=== PATIENT | female | born 1945 | race Caucasian/White ===

== ENCOUNTER 2017-07-30 08:40 | Outpatient (CLI) | payer MEDICARE, MEDICAID ==
[2017-07-30 09:14] LABS: Calc. Creatinine Clearance 0 mL/min (70-130); Estimated GFR-MDRD Greater than 90
--- NOTE | 2017-07-30 11:51 | CT ---
CT OF THE CHEST WITH CONTRAST: Date: 07/30/17 COMPARISON: None. HISTORY: History of breast, skin, and cervical cancer. Bone metastases. TECHNIQUE: Multiple contiguous axial images were obtained in a CT of the chest with contrast. Coronal reformats were performed. FINDINGS: There is a small left pleural effusion. There appears to be scarring in the left apex. There is a wel l circumscribed nodule in the right lower lobe measuring approximately 5-6 mm in size. There are scat tered areas of spiculation without central mass. These are most prominent in the right middle lobe an d right lower lobe. The heart is normal in size without focal cardiac abnormality. No hilar or mediastinal lymphadenopath y seen. The visualized subdiaphragmatic structures are unremarkable. The chest wall soft tissues are unremark able. Surgical clips are seen in the left axilla. A 1.8 cm area of soft tissue density near the surgi chelly clips may represent scar tissue. Recurrence is also a possibility. There are sclerotic lesions in the bones, most prominent in the spine, consistent with diffuse osseou s metastatic disease. IMPRESSION: 1. Diffuse osseous metastatic disease. 2. Right lower lobe pulmonary nodule with other scattered areas of spiculation in the right middle l obe and right lower lobe. These could potentially represent pulmonary metastatic disease. 3. Small left pleural effusion. POS: [facility]
--- NOTE | 2017-07-30 13:48 | NM ---
WHOLE BODY BONE SCAN: CLINICAL HISTORY: Metastatic breast malignancy. RADIOPHARMACEUTICAL: 31.7 mCi Technetium 99m MDP IV. COMPARISON: 01/25/17. FINDINGS: There remain scattered foci of increased radiotracer involving the axial and appendicular skeleton, w hich are less intense, when comparing to prior exam. This is compatible with the response to interva l therapy in the correct clinical context. There is redemonstration of multifocal abnormal areas of radiotracer uptake involving the calvarium, multilevel spine, pelvis, and lower extremities. IMPRESSION: Interval improvement with regard to increased scintigraphic activity involving multifocal osseous met astatic disease with residual areas of abnormal scintigraphic abnormality present, although are less intense. In the correct clinical context, this is correlative to interval response to therapy. No a dditional significant interval detrimental change identified. POS: [facility]
== END 2017-07-30 08:41 | disposition home or self-care (01) ==
LOC: CT 08:40
PROVIDERS: ATTEND Internal Medicine Hematology & Oncology
DX: C50.919 Malignant neoplasm of unspecified site of unspecified female breast (principal); C79.51 Secondary malignant neoplasm of bone; J90 Pleural effusion, not elsewhere classified; R91.1 Solitary pulmonary nodule
CPT/HCPCS: 71260; 78306; 82565; A9503; 36415

== ENCOUNTER 2018-01-18 08:52 | Outpatient (CLI) | payer MEDICARE, MEDICAID ==
[2018-01-18] MEDS ORDERED: Iopamidol 370 76% 100 ML VIAL ONE (10:36)
--- NOTE | 2018-01-18 11:21 | CT ---
CT THORAX WITH IV CONTRAST: 01/18/2018 HISTORY: Breast cancer. Osseous metastatic disease. History of prior chemotherapy. COMPARISON: 07/30/2017 FINDINGS: Post surgical changes, left breast, are again present. The left pleural fluid effusion has resolved. The pleural fluid collection at the posterior left renny g base has also decreased in size with only a thin curvilinear fluid density now present, in addition to what appears to be findings likely related to associated pleural thickening. The previously note d collection adjacent to the spleen, in the region of the left hemidiaphragm, has essentially resolve d, with increased attenuation now present in this region, which may be related to residual scarring a nd/or pleural thickening along the hemidiaphragm. The collection on the prior exam appeared to be ce ntered in the region of the left hemidiaphragm, although there was mass effect on the lateral wall of the spleen, which persists on today's examination, but the collection is no longer seen. There is a stable 7 mm pulmonary nodule at the posteromedial right lower lobe. There are a few scatt ered, irregular nodular densities again present within the right middle lobe, unchanged from the prio r exam. There is a stable mass-like density again noted in the left upper lobe, with adjacent linear densitie s and adjacent pleural thickening again present. There is also volume loss in the left upper lobe. These findings may be related to an area of scarring. This is unchanged compared to the prior exam. Given nodularity, a neoplastic process cannot be entirely excluded in this region of presumed scarrin g. There is no evidence of lymphadenopathy. Minimal vascular calcification is seen in the aortic arch. Sclerotic lesions associated with the right scapula, as well as involving several thoracic vertebral bodies, as well as the limited visualized L1 vertebral body, related to osseous metastatic disease, s imilar to the prior study. Increased density is seen within the gallbladder, dependently, likely related to cholelithiasis. No other interval change. IMPRESSION: 1. Resolution of left pleural effusion with improvement in left pleural fluid collection with only a thin, curvilinear collection now present, with pleural density posteriorly, likely related to pleura l thickening and scarring. The collection abutting the posterolateral aspect of the spleen has resol sherry, and there is now decreased attenuation in this region, which may be related to residual inflamma tory changes and/or scarring along the diaphragm. 2. Stable circumscribed pulmonary nodule, right lung base, with stable nodular densities in the righ t middle lobe. 3. Stable, mass like density with linear densities extending to the left hilum, which could be relat ed to scarring. However, given nodularity, a neoplastic process cannot be excluded. 4. Osseous metastatic disease, which does not appear to have significantly progressed from the prior exam. POS: [facility]
--- NOTE | 2018-01-18 13:41 | NM ---
RADIONUCLIDE WHOLE BODY BONE SCAN: History: Breast cancer with metastases. Restaging. Comparison: 07-30-17 FINDINGS: Focal areas of abnormal uptake, most intensely involving the right shoulder, thoracolumbar spine, and sacrum are similar in appearance to the prior study. Less intense areas involving the ribs, skull, a nd left tibia are also stable. No new areas of abnormal uptake are evident. IMPRESSION: Osseous metastatic disease appears unchanged from the 07-30-17 exam. POS: [facility]
== END 2018-01-18 08:53 | disposition home or self-care (01) ==
LOC: CT 08:52
PROVIDERS: ATTEND Internal Medicine Hematology & Oncology
DX: C50.919 Malignant neoplasm of unspecified site of unspecified female breast (principal); C79.51 Secondary malignant neoplasm of bone; R91.8 Other nonspecific abnormal finding of lung field; J90 Pleural effusion, not elsewhere classified
CPT/HCPCS: 71260; 78306; 82565; A9503

== ENCOUNTER 2018-06-30 08:42 | Outpatient (CLI) | payer MEDICARE, MEDICAID ==
--- NOTE | 2018-06-30 11:05 | CT ---
CT CHEST WITH CONTRAST: Comparison: 01-18-18, 07-30-17 History: Breast cancer with bone metastases. Technique: Multiple contiguous axial images were obtained in a CT of the chest with contrast. Coronal reformats were performed. FINDINGS: There is a stable 5 mm pulmonary nodule on Image 32 of 56 in the right lower lobe. Scarring versus at electasis is seen in the lingula. There are areas of scattered airspace opacities in the right middle lobe which are stable and may also represent scarring. A tiny left pleural effusion is present. No n ew pulmonary nodules are seen. No pneumothorax is seen. The visualized subdiaphragmatic structures are unremarkable. There are scattered sclerotic lesions in the skeleton consistent with osseous metastases. These appear stable compared to the prior examinati on. Post-surgical changes are seen in the left breast. IMPRESSION: 1. Stable right lower lobe pulmonary nodule. 2. Trace left pleural effusion. 3. Atelectasis versus scarring in the right middle lobe and lingula. 4. Stable sclerotic osseous lesions likely represent bone metastatic disease. This could represent re sidual disease or treated disease. POS: [facility]
--- NOTE | 2018-06-30 13:40 | NM ---
BONE SCAN: 06/30/18 The patient was given 30 millicuries of technetium labeled MDP, IV. Whole body images obtained. HISTORY: Breast cancer with bone metastases. Compared to bone scan of 01/18/18. There continues to be increased activity involving the right shoulder which appears to involve proxim al humerus and scapula. This appears to have increased in intensity. There are new lesions seen in the spine on posterior views today. There is several foci seen in the m id thoracic spine and there is very intense activity seen in the upper lumbar spine which appears to involve L1 and L2 vertebrae. This is new from prior study. Asymmetric sacral activity bilaterally. IMPRESSION: Increasing activity in the thoracic and lumbar spine since prior study. Continued abnormal activity a t the right shoulder and sacrum. POS: [facility]
== END 2018-06-30 08:43 | disposition home or self-care (01) ==
LOC: CT 08:42
PROVIDERS: ATTEND Internal Medicine Hematology & Oncology
DX: C50.919 Malignant neoplasm of unspecified site of unspecified female breast (principal); C79.51 Secondary malignant neoplasm of bone; R91.1 Solitary pulmonary nodule; M89.9 Disorder of bone, unspecified
CPT/HCPCS: 71260; 78306; 82565; A9503

== ENCOUNTER 2018-08-18 09:47 | Day surgery (SDC) | payer MEDICARE, MEDICAID ==
[2018-08-18 10:13] VITALS: BP 163/84; TEMP 98.4
[2018-08-18] MEDS ORDERED: Zoledronic Acid 4 MG in Sodium Chloride 0.9% 100 ML IVPB SCH (10:15)
[2018-08-18] MEDS ORDERED: Sodium Chloride 0.9% 300 ML ONE (10:20)
[2018-08-18 10:53] LABS: Red Blood Cell (RBC) Count 4.72 mill/uL (4.20-5.40)
[2018-08-18 10:54] LABS: %Neutrophils 62.4 % (42.0-75.0); Mean Corpuscular HGB CONC 33.3 g/dL (32.0-36.0); Mean Corpuscular Hemoglobin 29.7 pg (27.0-31.0); Mean Corpuscular Volume 89.2 fL (78.0-98.0); Platelet Count 187 thou/uL (130-400); RBC Distribution Width 11.8 % (11.5-14.5)
[2018-08-18 10:55] LABS: #Basophils 0.1 thou/uL (0.0-0.2); #Eosinphils 0.1 thou/uL (0.0-0.7); #Lymphocytes 1.7 thou/uL (1.20-3.40); #Monocytes 0.4 thou/uL (0.11-0.59); #Neutrophils 3.7 thou/uL (1.40-6.50); %Basophils 0.9 % (0.0-1.0); %Eosinophils 1.4 % (0.0-10.0); %Lymphocytes 27.9 % (21.0-51.0); %Monocytes 7.4 % (0.0-10.0)
== END 2018-08-18 10:57 | disposition home or self-care (01) ==
LOC: ONC/OP 09:47
PROVIDERS: ATTEND Internal Medicine Hematology & Oncology
DX: Z51.11 Encounter for antineoplastic chemotherapy (principal); C79.51 Secondary malignant neoplasm of bone; E78.00 Pure hypercholesterolemia, unspecified; E03.9 Hypothyroidism, unspecified; Z85.3 Personal history of malignant neoplasm of breast; Z92.21 Personal history of antineoplastic chemotherapy; Z92.3 Personal history of irradiation; Z79.899 Other long term (current) drug therapy; Z88.2 Allergy status to sulfonamides
CPT/HCPCS: 82378; 82565; 85025; 96365; 96402; J3489; J7050; J9395

== ENCOUNTER 2018-09-01 01:11 | Day surgery (SDC) | payer MEDICARE, MEDICAID | END 2018-09-01 09:19 | disposition home or self-care (01) | LOC: ONC/OP 01:11 | PROVIDERS: ATTEND Internal Medicine Hematology & Oncology | DX: Z51.11 Encounter for antineoplastic chemotherapy (principal); C79.51 Secondary malignant neoplasm of bone; Z85.3 Personal history of malignant neoplasm of breast; Z88.2 Allergy status to sulfonamides | CPT/HCPCS: 96402; J9395 ==

== ENCOUNTER 2018-09-15 10:00 | Day surgery (SDC) | payer MEDICARE, MEDICAID ==
[2018-09-15 14:04] VITALS: BP 140/95; TEMP 98.4
== END 2018-09-15 14:04 | disposition home or self-care (01) ==
LOC: ONC/OP 10:00
PROVIDERS: ATTEND Internal Medicine Hematology & Oncology
DX: Z51.11 Encounter for antineoplastic chemotherapy (principal); C79.51 Secondary malignant neoplasm of bone; Z85.3 Personal history of malignant neoplasm of breast; Z88.2 Allergy status to sulfonamides
CPT/HCPCS: 96402; J9395

== ENCOUNTER 2018-10-12 10:01 | Day surgery (SDC) | payer MEDICARE, MEDICAID ==
[2018-10-12 10:38] VITALS: BP 141/78; TEMP 97.5
== END 2018-10-12 10:38 | disposition home or self-care (01) ==
LOC: ONC/OP 10:01
PROVIDERS: ATTEND Internal Medicine Hematology & Oncology
DX: Z51.11 Encounter for antineoplastic chemotherapy (principal); C79.51 Secondary malignant neoplasm of bone; Z85.3 Personal history of malignant neoplasm of breast; Z88.2 Allergy status to sulfonamides
CPT/HCPCS: 80053; 82248; 83615; 84100; 84550; 96402; J9395

== ENCOUNTER 2018-11-09 11:57 | Day surgery (SDC) | payer MEDICARE, MEDICAID ==
[~2018-11-09 11:57] MED LIST: Zoledronic Acid 4 MG in Sodium Chloride 0.9% 100 ML IVPB SCH
[2018-11-09] MEDS ORDERED: Sodium Chloride 0.9% 20 ML ONE (12:07)
== END 2018-11-09 12:53 | disposition home or self-care (01) ==
LOC: ONC/OP 11:57
PROVIDERS: ATTEND Internal Medicine Hematology & Oncology
DX: Z51.11 Encounter for antineoplastic chemotherapy (principal); C79.51 Secondary malignant neoplasm of bone; Z85.3 Personal history of malignant neoplasm of breast; Z88.2 Allergy status to sulfonamides
CPT/HCPCS: 36415; 80053; 82248; 83615; 84100; 84550; 96365; 96402; J3489; J3490; J9395

== ENCOUNTER 2018-12-01 08:49 | Outpatient (CLI) | payer MEDICARE, MEDICAID ==
--- NOTE | 2018-12-01 10:25 | CT ---
CT CHEST WITH IV CONTRAST: Date: 12/01/17 HISTORY: Breast cancer with bone metastases. Status post left lumpectomy and chemo/radiation therapy. COMPARISON: 06/30/18. FINDINGS: No mediastinal, hilar, or axillary mass or lymphadenopathy seen. No pericardial or right pleural effu caroline is seen. There is a tiny stable left pleural effusion. The 5 mm pulmonary nodule in the right lower lobe is stable. Scarring versus atelectatic changes in t he lingula are again seen. Scarring in the right middle lobe is again seen. No new pulmonary nodules are seen. Sclerotic lesions in the skeleton consistent with metastases are stable. Cholelithiasis is again seen . IMPRESSION: Stable exam since 06/30/18. POS: [facility]
--- NOTE | 2018-12-01 14:37 | NM ---
WHOLE BODY BONE SCAN: Date: 12/01/18 HISTORY: Malignant neoplasm of unspecified site of unspecified female breast. Breast cancer with bone metastas is. Status post left lumpectomy and chemo/radiation therapy. COMPARISON: 06/30/18. CORRELATION: CT chest from same date. RADIOPHARMACEUTICAL: 29.5 mCi technetium-99m MDP injected intravenously. FINDINGS: Foci of increased uptake in the right scapula, thoracolumbar spine, and bilateral sacral ala and left femoral head are again seen, consistent with metastatic disease. No new lesions are seen. Tracer exc retion through the kidneys is within normal limits. Degenerative activity in the sternoclavicular haim nts, knees, feet, and wrists are again noted. IMPRESSION: Stable osseous metastatic disease since 06/30/18. POS: [facility]
== END 2018-12-01 08:50 | disposition home or self-care (01) ==
LOC: CT 08:49
PROVIDERS: ATTEND Internal Medicine Hematology & Oncology
DX: C79.51 Secondary malignant neoplasm of bone (principal); C50.919 Malignant neoplasm of unspecified site of unspecified female breast
CPT/HCPCS: 71260; 78306; 82565; A9503

== ENCOUNTER 2018-12-07 09:40 | Day surgery (SDC) | payer MEDICARE, MEDICAID ==
[2018-12-07 10:00] VITALS: BP 147/78; TEMP 98.5
== END 2018-12-07 10:01 | disposition home or self-care (01) ==
LOC: ONC/OP 09:40
PROVIDERS: ATTEND Internal Medicine Hematology & Oncology
DX: Z51.11 Encounter for antineoplastic chemotherapy (principal); C79.51 Secondary malignant neoplasm of bone; Z85.3 Personal history of malignant neoplasm of breast; Z88.1 Allergy status to other antibiotic agents
CPT/HCPCS: 80053; 82248; 83615; 84100; 84550; 96402; J9395

== ENCOUNTER 2019-01-11 11:13 | Day surgery (SDC) | payer MEDICARE, MEDICAID ==
[2019-01-11 11:20] VITALS: BP 150/72; TEMP 98.8
== END 2019-01-11 12:00 | disposition home or self-care (01) ==
LOC: ONC/OP 11:13
PROVIDERS: ATTEND Internal Medicine Hematology & Oncology
DX: Z51.11 Encounter for antineoplastic chemotherapy (principal); C79.51 Secondary malignant neoplasm of bone; Z85.3 Personal history of malignant neoplasm of breast; Z88.2 Allergy status to sulfonamides
CPT/HCPCS: 96402; J9395

== ENCOUNTER 2019-02-08 11:44 | Day surgery (SDC) | payer MEDICARE, MEDICAID ==
[2019-02-08] MEDS ORDERED: Sodium Chloride 0.9% 20 ML ONE (11:54)
== END 2019-02-08 13:04 | disposition home or self-care (01) ==
LOC: ONC/OP 11:44
PROVIDERS: ATTEND Internal Medicine Hematology & Oncology
DX: Z51.11 Encounter for antineoplastic chemotherapy (principal); C79.51 Secondary malignant neoplasm of bone; Z85.3 Personal history of malignant neoplasm of breast; Z88.2 Allergy status to sulfonamides
CPT/HCPCS: 36415; 82565; 96365; 96402; J3489; J3490; J9395

== ENCOUNTER 2019-03-08 10:57 | Day surgery (SDC) | payer MEDICARE, MEDICAID ==
[2019-03-08 11:14] VITALS: BP 144/73; TEMP 98.3
== END 2019-03-08 11:26 | disposition home or self-care (01) ==
LOC: ONC/OP 10:57
PROVIDERS: ATTEND Internal Medicine Hematology & Oncology
DX: Z51.11 Encounter for antineoplastic chemotherapy (principal); C79.51 Secondary malignant neoplasm of bone; Z85.3 Personal history of malignant neoplasm of breast; Z88.2 Allergy status to sulfonamides
CPT/HCPCS: 36415; 80053; 81001; 82248; 83615; 84100; 84550; 87086; 96402; J9395

== ENCOUNTER 2019-04-03 09:16 | Outpatient (CLI) | payer MEDICARE, MEDICAID ==
--- NOTE | 2019-04-03 10:43 | CT ---
CT chest with IV contrast HISTORY: Left breast cancer. Restaging. COMPARISON: 12/01/2018. FINDINGS: Dystrophic calcification and scarring at the left breast are stable. The 0.5 cm noncalcifie d nodule at the right posterior medial lung base is unchanged in appearance. No new parenchymal masses. Scarring, most pronounced at the left anterior lung base, is stable. Pleural thickening and s carring at the left posterior hemithorax are unchanged in appearance. No evidence of pneumothorax or mediastinal adenopathy. Hyperdense stones in the dependent portion of the gallbladder lumen. Sclerotic metastasis of the spine and right shoulder arthrogram demonstrated. Nondisplaced fracture a t the base of the coracoid process of the right scapula is stable. IMPRESSION: The 5 mm right lower lobe nodule, osseous metastatic disease, cholelithiasis, and other C T findings are stable.
[2019-04-03] MEDS ORDERED: Iopamidol 370 76% 100 ML VIAL ONE (13:12)
--- NOTE | 2019-04-03 14:47 | NM ---
WHOLE BODY BONE SCAN: HISTORY: A 73-year-old female with malignant neoplasm of unspecified site of unspecified female breast. Marbella dodson malignant neoplasm of bone. RADIOPHARMACEUTICAL: Technetium 99m MDP 32 millicuries injected intravenously. COMPARISON: Bone scan of 12/01/2018. CORRELATION: CT chest from the same date. FINDINGS: Previously noted foci of increased uptake in the right scapula, thoracolumbar spine, bilateral sacral ala, left femoral head and skull are again seen, consistent with metastatic disease. No new lesions are identified. Tracer excretion through the kidneys is within normal limits. Degenerative activity in the sternocla vicular joints, knees, feet, and wrists is again seen. IMPRESSION: Stable osseous metastatic disease. POS: [facility]
== END 2019-04-03 09:17 | disposition home or self-care (01) ==
LOC: CT 09:16
PROVIDERS: ATTEND Internal Medicine Hematology & Oncology
DX: C79.51 Secondary malignant neoplasm of bone (principal); K80.20 Calculus of gallbladder without cholecystitis without obstruction; R91.1 Solitary pulmonary nodule; Z85.3 Personal history of malignant neoplasm of breast
CPT/HCPCS: 71260; 78306; 82565; A9503; Q9967

== ENCOUNTER 2019-04-05 11:10 | Day surgery (SDC) | payer MEDICARE, MEDICAID ==
[2019-04-05 11:24] VITALS: BP 176/81; TEMP 98.4
== END 2019-04-05 13:22 | disposition home or self-care (01) ==
LOC: ONC/OP 11:10
PROVIDERS: ATTEND Internal Medicine Hematology & Oncology
DX: Z51.11 Encounter for antineoplastic chemotherapy (principal); C79.51 Secondary malignant neoplasm of bone; Z85.3 Personal history of malignant neoplasm of breast; Z88.2 Allergy status to sulfonamides
CPT/HCPCS: 96402; J9395

== ENCOUNTER 2019-05-03 09:23 | Day surgery (SDC) | payer MEDICARE, MEDICAID ==
[2019-05-03] MEDS ORDERED: Sodium Chloride 0.9% 20 ML ONE (09:32)
[2019-05-03 10:53] LABS: #Basophils 0.1 thou/uL (0.0-0.2); #Lymphocytes 1.1 thou/uL (1.20-3.40); #Monocytes 0.1 thou/uL (0.11-0.59); #Neutrophils 1.7 thou/uL (1.40-6.50); %Basophils 1.9 % (0.0-1.0); %Eosinophils 0.9 % (0.0-10.0); %Lymphocytes 38.1 % (21.0-51.0); %Monocytes 1.9 % (0.0-10.0); %Neutrophils 57.2 % (42.0-75.0); Mean Corpuscular HGB CONC 35.6 g/dL (32.0-36.0); Mean Corpuscular Hemoglobin 36.7 pg (27.0-31.0); Mean Platelet Volume 7.8 fL (7.4-10.4); Platelet Count 220 thou/uL (130-400); RBC Distribution Width 12.9 % (11.5-14.5); Red Blood Cell (RBC) Count 3.26 mill/uL (4.20-5.40)
== END 2019-05-03 11:56 | disposition home or self-care (01) ==
LOC: ONC/OP 09:23
PROVIDERS: ATTEND Internal Medicine Hematology & Oncology
DX: Z51.11 Encounter for antineoplastic chemotherapy (principal); C79.51 Secondary malignant neoplasm of bone; Z85.3 Personal history of malignant neoplasm of breast; Z88.2 Allergy status to sulfonamides
CPT/HCPCS: 85025; 96365; 96401; J3489; J3490; J9395

== ENCOUNTER 2019-05-31 10:54 | Day surgery (SDC) | payer MEDICARE, MEDICAID ==
[2019-05-31 11:15] VITALS: BP 133/79; TEMP 97.8
== END 2019-05-31 11:27 | disposition home or self-care (01) ==
LOC: ONC/OP 10:54
PROVIDERS: ATTEND Internal Medicine Hematology & Oncology
DX: Z51.11 Encounter for antineoplastic chemotherapy (principal); C79.51 Secondary malignant neoplasm of bone; Z85.3 Personal history of malignant neoplasm of breast
CPT/HCPCS: 96402; J9395

== ENCOUNTER 2019-06-28 09:18 | Day surgery (SDC) | payer MEDICARE, MEDICAID ==
[2019-06-28 09:56] VITALS: BP 140/74; TEMP 98
== END 2019-06-28 10:11 | disposition home or self-care (01) ==
LOC: ONC/OP 09:18
PROVIDERS: ATTEND Internal Medicine Hematology & Oncology
DX: Z51.11 Encounter for antineoplastic chemotherapy (principal); C79.51 Secondary malignant neoplasm of bone; Z85.3 Personal history of malignant neoplasm of breast; Z88.2 Allergy status to sulfonamides
CPT/HCPCS: 80053; 82248; 83615; 84100; 84550; 96402; J9395

== ENCOUNTER 2019-07-24 09:05 | Outpatient (CLI) | payer MEDICARE, MEDICAID ==
--- NOTE | 2019-07-24 12:02 | CT ---
CT CHEST WITH IV CONTRAST: Date: 07/24/2019 HISTORY: Left breast cancer, restaging. COMPARISON: 04/03/2019. FINDINGS: Dystrophic calcification scarring in the left breast is again seen. No mediastinal, hilar, or axillar y mass or lymphadenopathy identified. Postop changes of left axillary dissection are redemonstrated. No pleural or pericardial effusions are seen. The pleural thickening and scarring in the left posteri or hemothorax are unchanged. Scarring in the left upper lobe is redemonstrated. The 5 mm solid parenc hymal nodule in the posteromedial aspect of the right lung base is stable. No new parenchymal masses are seen. Upper abdominal tomograms demonstrate cholelithiasis. Sclerotic metastatic changes in the spine and right scapula are again seen. IMPRESSION: Stable exam since 04/03/2019. POS: [facility]
--- NOTE | 2019-07-24 13:37 | NM ---
Radionucleotide bone scan HISTORY: Breast cancer with osseous metastases. Restaging. COMPARISON: Multiple exams back to 06/30/2018. FINDINGS: Abnormal foci of increased radiotracer uptake involving the right scapula, thoracolumbar sp ine, pelvis, and skull again demonstrated. Increased intensity is favored to be related to differences in windowing of images. The subtle lesion involving the mid left femoral shaft was not we ll demonstrated on the 04/03/2019 study but is unchanged from the 12/01/2018 study. No new abnormalities are evident. IMPRESSION: Stable scintigraphic evidence of osseous metastatic disease.
[2019-07-24] MEDS ORDERED: Iopamidol 370 76% 100 ML VIAL ONE (15:51)
== END 2019-07-24 09:06 | disposition home or self-care (01) ==
LOC: CT 09:05
PROVIDERS: ATTEND Internal Medicine Hematology & Oncology
DX: C79.51 Secondary malignant neoplasm of bone (principal); C50.912 Malignant neoplasm of unspecified site of left female breast
CPT/HCPCS: 71260; 78306; 82565; A9503; Q9967

== ENCOUNTER 2019-07-26 11:53 | Day surgery (SDC) | payer MEDICARE, MEDICAID ==
[2019-07-26] MEDS ORDERED: Sodium Chloride 0.9% 20 ML ONE (12:45)
[2019-07-26 14:27] VITALS: BP 150/71; TEMP 97.9
== END 2019-07-26 14:28 | disposition home or self-care (01) ==
LOC: ONC/OP 11:53
PROVIDERS: ATTEND Internal Medicine Hematology & Oncology
DX: Z51.11 Encounter for antineoplastic chemotherapy (principal); C79.51 Secondary malignant neoplasm of bone; Z85.3 Personal history of malignant neoplasm of breast
CPT/HCPCS: 36415; 82565; 96374; 96401; J3489; J3490; J9395

== ENCOUNTER → 2019-08-23 | Day surgery (SDC) | payer MEDICARE, MEDICAID ==
[2019-08-23 14:29] VITALS: BP 134/72; TEMP 98.7
== END ==
LOC: ONC/OP 10:59
PROVIDERS: ATTEND Internal Medicine Hematology & Oncology
DX: Z51.11 Encounter for antineoplastic chemotherapy (principal); C79.51 Secondary malignant neoplasm of bone; Z85.3 Personal history of malignant neoplasm of breast; Z88.2 Allergy status to sulfonamides
CPT/HCPCS: 80053; 82248; 83615; 84100; 84550; 96401; J9395

== ENCOUNTER 2019-09-20 09:51 | Day surgery (SDC) | payer MEDICARE, MEDICAID ==
[2019-09-20 10:17] VITALS: BP 143/74; TEMP 98.6
== END 2019-09-20 11:52 | disposition home or self-care (01) ==
LOC: ONC/OP 09:51
PROVIDERS: ATTEND Internal Medicine Hematology & Oncology
DX: Z51.12 Encounter for antineoplastic immunotherapy (principal); C79.51 Secondary malignant neoplasm of bone; Z85.3 Personal history of malignant neoplasm of breast; Z88.2 Allergy status to sulfonamides
CPT/HCPCS: 96401; J9395

== ENCOUNTER 2019-10-18 10:18 | Day surgery (SDC) | payer MEDICARE, MEDICAID ==
[~2019-10-18 10:18] MED LIST changes: +Sodium Chloride 0.9% 20 ML ONE
[2019-10-18 14:41] VITALS: BP 169/75; TEMP 98
== END 2019-10-18 14:42 | disposition home or self-care (01) ==
LOC: ONC/OP 10:18
PROVIDERS: ATTEND Internal Medicine Hematology & Oncology
DX: C79.51 Secondary malignant neoplasm of bone (principal); Z85.3 Personal history of malignant neoplasm of breast; Z79.818 Long term (current) use of other agents affecting estrogen receptors and estrogen levels; Z79.83 Long term (current) use of bisphosphonates; Z88.2 Allergy status to sulfonamides
CPT/HCPCS: 36415; 80053; 82248; 83615; 84100; 84550; 96402; J3489; J3490; J9395

== ENCOUNTER 2019-11-15 10:54 | Day surgery (SDC) | payer MEDICARE, MEDICAID ==
[~2019-11-15 10:54] MED LIST changes: -Zoledronic Acid 4 MG in Sodium Chloride 0.9% 100 ML IVPB SCH
[2019-11-15] MEDS ORDERED: Zoledronic Acid 4 MG in Sodium Chloride 0.9% 100 ML IVPB SCH (11:00)
[2019-11-15 12:23] VITALS: BP 142/71; TEMP 98.4
== END 2019-11-15 12:55 | disposition home or self-care (01) ==
LOC: ONC/OP 10:54
PROVIDERS: ATTEND Internal Medicine Hematology & Oncology
DX: Z51.11 Encounter for antineoplastic chemotherapy (principal); C79.51 Secondary malignant neoplasm of bone; Z85.3 Personal history of malignant neoplasm of breast; Z88.2 Allergy status to sulfonamides
CPT/HCPCS: 96365; 96402; J3489; J3490; J9395

== ENCOUNTER 2019-12-04 09:19 | Outpatient (CLI) | payer MEDICARE, MEDICAID ==
[2019-12-04] MEDS ORDERED: Iopamidol 370 76% 100 ML VIAL ONE (09:51)
--- NOTE | 2019-12-04 10:52 | CT ---
CT chest with IV contrast HISTORY: Breast cancer with bone metastases. Restaging. COMPARISON: 07/24/2019. FINDINGS: Large wedge-shaped area of parenchymal opacity at the lateral aspect of the left upper lobe has the appearance of scarring and is similar in appearance to the previous study. Pleural thickening at the posterior left hemithorax is stable. The 0.5 cm noncalcified nodule at the right posterior medial lung base is unchanged in appearance. Ti ny nonspecific subpleural nodule at the right anterior medial aspect of the right upper lobe is stable. No new nodules are evident. Postoperative changes of the left breast and left axilla again demonstrated. No mediastinal adenopath y. Hyperdense stones partially visualized within the dependent portion of the gallbladder lumen. IMPRESSION : Left lung parenchymal scarring, tiny right lung nodules, and other findings are stable. No new lesion s demonstrated.
--- NOTE | 2019-12-04 14:37 | NM ---
Radionucleotide bone scan HISTORY: Breast cancer with bone metastases. Restaging. COMPARISON: 07/24/2019. FINDINGS: Areas of abnormal radiotracer uptake are again demonstrated at the right scapula, thoracic and lumbar spine, pelvis, ribs, and left femur. The very subtle lesion involving the left side of the skull is barely perceptible on today's exam. No new abnormalities are evident. Pubic symphysis predominantly obscured by uptake and urinary bladde r. IMPRESSION : Possible mild improvement, as the skull lesion is less conspicuous than on previous exams. Findings a re otherwise stable. No new abnormalities.
== END 2019-12-04 09:20 | disposition home or self-care (01) ==
LOC: CT 09:19
PROVIDERS: ATTEND Internal Medicine Hematology & Oncology
DX: C50.919 Malignant neoplasm of unspecified site of unspecified female breast (principal); C79.51 Secondary malignant neoplasm of bone
CPT/HCPCS: 71260; 78306; 82565; A9503; Q9967

== ENCOUNTER 2020-01-10 10:54 | Day surgery (SDC) | payer MEDICARE, MEDICAID ==
[~2020-01-10 10:54] MED LIST changes: -Sodium Chloride 0.9% 20 ML ONE; +Zoledronic Acid 4 MG in Sodium Chloride 0.9% 100 ML IVPB SCH
[2020-01-10 11:00] VITALS: BP 143/74; TEMP 98
== END 2020-01-10 11:48 | disposition home or self-care (01) ==
LOC: ONC/OP 10:54
PROVIDERS: ATTEND Internal Medicine Hematology & Oncology
DX: C79.51 Secondary malignant neoplasm of bone (principal); Z85.3 Personal history of malignant neoplasm of breast; Z79.818 Long term (current) use of other agents affecting estrogen receptors and estrogen levels; Z79.83 Long term (current) use of bisphosphonates; Z88.2 Allergy status to sulfonamides
CPT/HCPCS: 36415; 82565; 96402; J3489; J3490; J9395

== ENCOUNTER 2020-02-07 10:04 | Day surgery (SDC) | payer MEDICARE, MEDICAID ==
[2020-02-07] MEDS ORDERED: Sodium Chloride 0.9% 20 ML ONE (10:21)
[2020-02-07 10:32] VITALS: BP 160/71; TEMP 97.9
== END 2020-02-07 11:37 | disposition home or self-care (01) ==
LOC: ONC/OP 10:04
PROVIDERS: ATTEND Internal Medicine Hematology & Oncology
DX: Z51.11 Encounter for antineoplastic chemotherapy (principal); C79.51 Secondary malignant neoplasm of bone; Z85.3 Personal history of malignant neoplasm of breast; Z88.2 Allergy status to sulfonamides
CPT/HCPCS: 80053; 82248; 83615; 84100; 84550; 96365; 96402; J3489; J3490; J9395

== ENCOUNTER 2020-04-01 10:08 | Outpatient (CLI) | payer MEDICARE, MEDICAID ==
--- NOTE | 2020-04-01 11:01 | CT ---
CT CHEST WITH CONTRAST CLINICAL INDICATION: Breast cancer with osseous metastatic disease. History of left lumpectomy. COMPARISON: 12/04/2019 FINDINGS: Aorta: Minimal scattered vascular calcifications and atherosclerotic plaque. Lungs: Again noted is the parenchymal opacity in the anterolateral aspect of the left upper lobe with linear densities extending to the hilum, and this is likely related to an area of scarring which is unchanged compared to prior study. Findings were also similar in appearance to study on 06/30/2018 . There are at least 3 less than 5 mm nodular densities seen in the right middle lobe unchanged when co mpared to the prior study. No new pulmonary nodule or mass is seen. Stable area of pleural thickening posterior left hemithorax is again seen. No new pulmonary nodule or mass is seen. There ar e scattered linear densities again seen within the right lung probably due to areas of mild scarring. There is minimal pleural thickening along the major fissure on the right. This is also a st able finding. Mediastinum: There is no evidence of lymphadenopathy. Thyroid gland: Normal in appearance where visualized. Osseous structures: Again noted are multifocal osseous metastatic lesions seen throughout the visuali zed lower cervical, thoracic, and visualized upper lumbar vertebral bodies similar to prior exam. A subtle focus of increased density is again seen in the manubrium. Metastatic lytic and sclerotic lesi on involving the right scapula is again seen. No definite newly developed osseous metastatic lesions are seen. Chest wall: Postoperative changes left breast and left axilla are again seen. Upper abdomen: Exophytic subcentimeter too small to characterize hypodense lesion superior pole left kidney is again seen statistically likely representing a cyst. There is diminished attenuation in the central aspect of each kidney which may be related to parapelvic renal cysts as opposed to hydron ephrosis. This difficult to further evaluate on this exam. IMPRESSION: 1. Stable area of parenchymal scarring left upper lobe as well as stable pleural thickening posterior left hemithorax. 2. Stable tiny less than 4 mm pulmonary nodules right middle lobe. 3. Stable osseous metastatic disease.
--- NOTE | 2020-04-01 14:18 | NM ---
Radionucleotide bone scan HISTORY: Breast cancer. Bone metastases. Restaging. COMPARISON: 12/04/2019. FINDINGS: Focal areas of increased radiotracer uptake are again shown to involve the right scapula, t horacic and lumbar spine, pelvis, posterior ribs, and left femur. Mild degenerative type uptake of the knees and feet are stable. No new lesions are apparent. IMPRESSION : Stable scintigraphic appearance of osseous metastatic disease.
== END 2020-04-01 10:09 | disposition home or self-care (01) ==
LOC: CT 10:08
PROVIDERS: ATTEND Internal Medicine Hematology & Oncology
DX: C50.919 Malignant neoplasm of unspecified site of unspecified female breast (principal); C79.51 Secondary malignant neoplasm of bone; R91.8 Other nonspecific abnormal finding of lung field; J98.4 Other disorders of lung; J92.9 Pleural plaque without asbestos; Z85.3 Personal history of malignant neoplasm of breast
CPT/HCPCS: 71260; 78306; A9503

== ENCOUNTER 2020-08-20 08:50 | Outpatient (CLI) | payer MEDICARE, MEDICAID ==
[2020-08-20] MEDS ORDERED: Iopamidol 370 76% 100 ML VIAL ONE (10:45)
--- NOTE | 2020-08-20 12:12 | CT ---
CT OF CHEST AND ABDOMEN AND PELVIS PERFORMED WITH IV CONTRAST ENHANCEMENT: Date: 08/20/2020 HISTORY: Breast cancer with bone metastases. This is a follow-up. COMPARISON: 04/01/2020 study. FINDINGS: CT CHEST: Left upper lobe pleural based scarring. This has a slightly nodular component. This is a stable appea felipe as compared to the previous exam. The previously described tiny nodular densities within the ri ght lung are stable. These were seen on axial image 24. The small pleural effusion or pleural thicken ing seen in the left lung base is stable. Postoperative changes of the left breast again noted. No si gnificant mediastinal, hilar, or axillary adenopathy. CT ABDOMEN: CT of abdomen was performed with contrast enhancement. The liver, spleen, and pancreas regions are un remarkable. There are small gallstones within mildly distended gallbladder incidentally seen. Right a nd left adrenal glands are normal. Small hypodensity in the upper pole of the left kidney is most com patible with a cyst. There also appears to be some parapelvic cyst formation. There is no significant periaortic or mesenteric adenopathy. CT PELVIS: CT of pelvis was performed with contrast enhancement. Some calcified uterine fibroids are present. Di rectly anterior to the uterine fundus is a small cystic structure which appears to be related to a sm all bowel. This is seen on axial image 104. It is definitely smaller as compared to the 2017 study. I t measured almost 2.5 cm at that time. This may represent some type of duplication cyst or small dive rticulum and is felt to be an incidental finding. A small, fat-containing paraumbilical hernia is see n. Review of osseous structures show extensive metastatic bony changes. Changes in the chest and abdomen region are felt to be stable as compared to previous chest and abdomen exams. There is also bony met astatic disease seen within the pelvis. No pathologic fracture is identified. IMPRESSION: 1. Essentially stable chest, abdomen, and pelvis. 2. Diffuse bony metastatic disease. 3. Stable tiny nodules within the right lung. Also, stable parenchymal scarring within the left lung . 4. Gallstones. 5. Other incidental findings as noted above. POS: [facility] [place]
--- NOTE | 2020-08-20 13:29 | NM ---
WHOLE BODY BONE SCAN: HISTORY: Primary malignant neoplasm of breast. Secondary malignant neoplasm of bone. RADIOPHARMACEUTICAL: 31.6 mCi technetium 99m-MDP injected intravenously COMPARISON:12/04/2019 CORRELATION: CT chest, abdomen and pelvis from today FINDINGS: Focal areas of increased radiotracer uptake are again shown to involve the right scapula, thoracic an d lumbar spine, pelvis, posterior ribs, and left femur. There is a subtle focus of increased uptake in the left side of the skull was not definitely seen on the study of 04/01/2020 There scattered degenerative activity in the appendicular skeleton. Tracer excretion through the kidneys is within normal limits. IMPRESSION: Tiny new calvarial lesion, otherwise stable exam
== END 2020-08-20 08:51 | disposition home or self-care (01) ==
LOC: CT 08:50
PROVIDERS: ATTEND Internal Medicine Hematology & Oncology
DX: C50.919 Malignant neoplasm of unspecified site of unspecified female breast (principal); C79.51 Secondary malignant neoplasm of bone; R91.8 Other nonspecific abnormal finding of lung field; K80.20 Calculus of gallbladder without cholecystitis without obstruction; N28.89 Other specified disorders of kidney and ureter; D25.9 Leiomyoma of uterus, unspecified; Z98.890 Other specified postprocedural states
CPT/HCPCS: 71260; 74177; 78306; 82565; A9503; Q9967

== ENCOUNTER 2021-01-06 09:16 | Outpatient (CLI) | payer MEDICARE, MEDICAID ==
[~2021-01-06 09:16] MED LIST changes: +Iopamidol 370 76% 100 ML VIAL ONE; -Zoledronic Acid 4 MG in Sodium Chloride 0.9% 100 ML IVPB SCH
== END 2021-01-06 09:17 | disposition home or self-care (01) ==
LOC: CT 09:16
PROVIDERS: ATTEND Internal Medicine Hematology & Oncology
DX: C79.51 Secondary malignant neoplasm of bone (principal); C50.919 Malignant neoplasm of unspecified site of unspecified female breast; J98.4 Other disorders of lung; J92.9 Pleural plaque without asbestos; K80.20 Calculus of gallbladder without cholecystitis without obstruction
CPT/HCPCS: 71260; 78306; 82565; A9503; Q9967

== ENCOUNTER 2021-07-04 08:36 | Outpatient (CLI) | payer MEDICARE, MEDICAID ==
[~2021-07-04 08:36] MED LIST changes: -Iopamidol 370 76% 100 ML VIAL ONE; +Iopamidol-370 76% 500 ML 1 ML ONE
== END 2021-07-04 08:37 | disposition home or self-care (01) ==
LOC: CT 08:36
PROVIDERS: ATTEND Internal Medicine Hematology & Oncology
DX: C50.919 Malignant neoplasm of unspecified site of unspecified female breast (principal); C79.51 Secondary malignant neoplasm of bone; J98.4 Other disorders of lung; R91.8 Other nonspecific abnormal finding of lung field; R16.0 Hepatomegaly, not elsewhere classified
CPT/HCPCS: 71260; 78306; A9503; Q9967

== ENCOUNTER 2021-07-23 10:38 | Outpatient (CLI) | payer MEDICARE, MEDICAID | END 2021-07-23 10:39 | disposition home or self-care (01) | LOC: MERGE 10:38 → BICCT 10:38 | PROVIDERS: ATTEND Internal Medicine Hematology & Oncology | DX: R93.2 Abnormal findings on diagnostic imaging of liver and biliary tract (principal); C78.7 Secondary malignant neoplasm of liver and intrahepatic bile duct; C79.51 Secondary malignant neoplasm of bone; K80.20 Calculus of gallbladder without cholecystitis without obstruction | CPT/HCPCS: 74178; 82565 ==

== ENCOUNTER 2022-03-09 08:33 | Outpatient (CLI) | payer MEDICARE, MEDICAID ==
[2022-03-09] MEDS ORDERED: Iopamidol-370 76% 500 ML 1 ML ONE (11:26)
== END 2022-03-09 08:34 | disposition home or self-care (01) ==
LOC: BICCT 08:33
PROVIDERS: ATTEND Internal Medicine Hematology & Oncology
DX: C22.9 Malignant neoplasm of liver, not specified as primary or secondary (principal); C79.51 Secondary malignant neoplasm of bone
CPT/HCPCS: 74177; 82565; Q9967

== ENCOUNTER 2022-06-08 08:43 | Outpatient (CLI) | payer MEDICARE, MEDICAID ==
[2022-06-08] MEDS ORDERED: Iopamidol-370 76% 500 ML 1 ML ONE (09:13)
== END 2022-06-08 08:44 | disposition home or self-care (01) ==
LOC: BICCT 08:43
PROVIDERS: ATTEND Internal Medicine Hematology & Oncology
DX: C79.51 Secondary malignant neoplasm of bone (principal); C78.7 Secondary malignant neoplasm of liver and intrahepatic bile duct; C50.919 Malignant neoplasm of unspecified site of unspecified female breast; R91.1 Solitary pulmonary nodule; K76.9 Liver disease, unspecified; J92.9 Pleural plaque without asbestos; I70.0 Atherosclerosis of aorta; K80.20 Calculus of gallbladder without cholecystitis without obstruction; N28.1 Cyst of kidney, acquired; K42.9 Umbilical hernia without obstruction or gangrene
CPT/HCPCS: 71260; 74177; 82565

== ENCOUNTER 2022-07-24 10:52 | Outpatient (CLI) | payer MEDICARE, MEDICAID ==
[2022-07-24 12:21] LABS: #Basophils 0.1 10x3/uL (0.0-0.2); #Monocytes 0.6 10x3/uL (0.0-1.1); %Lymphocytes 26.1 % (18.0-47.0); %Monocytes 9.1 % (0.0-10.0); %Neutrophils 63.2 % (40.0-75.0); Hemoglobin 12.9 g/dL (12.0-15.5); Mean Corpuscular HGB CONC 33.1 g/dL (32.0-36.0); Mean Corpuscular Hemoglobin 30.9 pg (27.0-33.0); Mean Corpuscular Volume 93.5 fl (81.6-98.3); Mean Platelet Volume 9.5 fl (7.4-10.4); Platelet Count 243 10x3/uL (150-450); Red Blood Cell (RBC) Count 4.17 10x6/uL (3.90-5.03); White Blood Cell (WBC) Count 6.3 10x3/uL (3.5-10.5)
[2022-07-24 12:36] LABS: Anion Gap 9 mmol/L (10-20); BUN (Urea Nitrogen) 12 mg/dL (9.8-20.1); Calc. Creatinine Clearance 0 mL/min (70-130); Calcium 8.8 mg/dL (7.8-10.44); Carbon Dioxide 26 mmol/L (23-31); Chloride 107 mmol/L (98-107); Estimated GFR 84; Glucose 94 mg/dL (83-110); Potassium 4.3 mmol/L (3.5-5.1); Sodium 138 mmol/L (136-145)
== END 2022-07-24 10:53 | disposition home or self-care (01) ==
LOC: LABBT 10:52
PROVIDERS: ATTEND Specialist
DX: Z01.812 Encounter for preprocedural laboratory examination (principal); C50.919 Malignant neoplasm of unspecified site of unspecified female breast
CPT/HCPCS: 80048; 85025

== ENCOUNTER 2022-07-27 09:48 | Day surgery (SDC) | payer MEDICARE, MEDICAID ==
[2022-07-24 11:52] VITALS: BMI 29.2
[2022-07-27] MEDS ORDERED: Ketorolac Tromethamine 30 MG/ML VIAL ONE (10:27)
[2022-07-27] MEDS ORDERED: Acetaminophen 500 MG TAB ONE (10:27)
[2022-07-27] MEDS ORDERED: Bupivacaine/Epinephrine 0.25% 30 ML VIAL ONE (11:32)
[2022-07-27] MEDS ORDERED: CEFAZOLIN 2 GM VIAL ONE (11:49)
[2022-07-27] MEDS ORDERED: Sodium Chloride 0.9% 100 ML ONE (11:49)
[2022-07-27] MEDS ORDERED: Fentanyl 250 MCG/5 ML VIAL ONE (11:54)
[2022-07-27] MEDS ORDERED: PROPOFOL 40 ML ONE (11:55)
[2022-07-27] MEDS ORDERED: Fentanyl 100 MCG/2 ML VIAL ONE (12:39)
[2022-07-27] MEDS ORDERED: PROPOFOL 200 MG/20 ML VIAL ONE (13:01)
== END 2022-07-27 14:55 | disposition home or self-care (01) ==
LOC: SDC 09:48
PROVIDERS: ATTEND Specialist
PROC: 0JH60WZ Insertion of Totally Implantable Vascular Access Device into Chest Subcutaneous Tissue and Fascia, Open Approach (ICD-10-PCS; principal; 2022-07-27)
PROC: 02HV33Z Insertion of Infusion Device into Superior Vena Cava, Percutaneous Approach (ICD-10-PCS; 2022-07-27)
DX: C50.912 Malignant neoplasm of unspecified site of left female breast (principal); C79.51 Secondary malignant neoplasm of bone; C78.00 Secondary malignant neoplasm of unspecified lung; C78.7 Secondary malignant neoplasm of liver and intrahepatic bile duct; E78.00 Pure hypercholesterolemia, unspecified; E03.9 Hypothyroidism, unspecified; G44.029 Chronic cluster headache, not intractable; N18.30 Chronic kidney disease, stage 3 unspecified; Z79.890 Hormone replacement therapy; Z79.899 Other long term (current) drug therapy; Z88.2 Allergy status to sulfonamides
CPT/HCPCS: 71045; C1788; J1642; J1885; J2704; J3010; J3490

== ENCOUNTER 2022-09-22 10:33 | Outpatient (CLI) | payer MEDICARE, MEDICAID ==
[~2022-09-22 10:33] MED LIST changes: +Iopamidol 370 76% 100 ML VIAL ONE; -Iopamidol-370 76% 500 ML 1 ML ONE
== END 2022-09-22 10:34 | disposition home or self-care (01) ==
LOC: CT 10:33
PROVIDERS: ATTEND Internal Medicine Hematology & Oncology
DX: C79.51 Secondary malignant neoplasm of bone (principal); C22.9 Malignant neoplasm of liver, not specified as primary or secondary; R91.1 Solitary pulmonary nodule
CPT/HCPCS: 71260; 74177; Q9967

== ENCOUNTER 2022-11-12 13:52 | Outpatient (CLI) | payer MEDICARE, MEDICAID | END 2022-11-12 13:53 | disposition home or self-care (01) | LOC: ULT 13:52 | PROVIDERS: ATTEND Internal Medicine Hematology & Oncology | DX: Z51.11 Encounter for antineoplastic chemotherapy (principal); C79.51 Secondary malignant neoplasm of bone; R91.1 Solitary pulmonary nodule; I50.30 Unspecified diastolic (congestive) heart failure; I08.3 Combined rheumatic disorders of mitral, aortic and tricuspid valves; Z79.899 Other long term (current) drug therapy | CPT/HCPCS: 93306 ==

== ENCOUNTER 2023-03-26 10:19 | Outpatient (CLI) | payer MEDICARE, MEDICAID ==
[2023-03-26] MEDS ORDERED: Iopamidol 370 76% 100 ML VIAL ONE (12:44)
== END 2023-03-26 10:20 | disposition home or self-care (01) ==
LOC: CT 10:19
PROVIDERS: ATTEND Internal Medicine Hematology & Oncology
DX: C50.919 Malignant neoplasm of unspecified site of unspecified female breast (principal); C79.51 Secondary malignant neoplasm of bone; C78.7 Secondary malignant neoplasm of liver and intrahepatic bile duct; R91.8 Other nonspecific abnormal finding of lung field; K76.9 Liver disease, unspecified; J92.9 Pleural plaque without asbestos; J98.4 Other disorders of lung; K80.20 Calculus of gallbladder without cholecystitis without obstruction; N28.1 Cyst of kidney, acquired; N85.8 Other specified noninflammatory disorders of uterus; I70.0 Atherosclerosis of aorta; I70.8 Atherosclerosis of other arteries; K42.9 Umbilical hernia without obstruction or gangrene; R93.5 Abnormal findings on diagnostic imaging of other abdominal regions, including retroperitoneum; R93.2 Abnormal findings on diagnostic imaging of liver and biliary tract; Z95.828 Presence of other vascular implants and grafts
CPT/HCPCS: 71260; 74177; Q9967

== ENCOUNTER 2023-06-24 10:02 | Outpatient (CLI) | payer MEDICARE, MEDICAID | END 2023-06-24 10:03 | disposition home or self-care (01) | LOC: CT 10:02 | PROVIDERS: ATTEND Internal Medicine Hematology & Oncology | DX: C79.51 Secondary malignant neoplasm of bone (principal); R91.1 Solitary pulmonary nodule; C78.7 Secondary malignant neoplasm of liver and intrahepatic bile duct; K76.9 Liver disease, unspecified; K80.20 Calculus of gallbladder without cholecystitis without obstruction; C80.1 Malignant (primary) neoplasm, unspecified | CPT/HCPCS: 71260; 74177 ==

== ENCOUNTER 2023-10-13 08:42 | Outpatient (CLI) | payer MEDICARE, MEDICAID ==
[2023-10-13] MEDS ORDERED: Iopamidol 370 76% 100 ML VIAL ONE (10:01)
[2023-10-13] MEDS ORDERED: GASTROGRAFIN 30 ML BOT ONE (10:01)
[2023-10-13] MEDS ORDERED: Magnevist 469MG/ML 20 ML VIAL ONE ×2 (10:22)
== END 2023-10-13 08:43 | disposition home or self-care (01) ==
LOC: CT 08:42
PROVIDERS: ATTEND Internal Medicine Hematology & Oncology
DX: C79.51 Secondary malignant neoplasm of bone (principal); C78.7 Secondary malignant neoplasm of liver and intrahepatic bile duct; C50.919 Malignant neoplasm of unspecified site of unspecified female breast; M43.6 Torticollis; M54.6 Pain in thoracic spine; R91.1 Solitary pulmonary nodule; R09.89 Other specified symptoms and signs involving the circulatory and respiratory systems; R93.2 Abnormal findings on diagnostic imaging of liver and biliary tract; K80.20 Calculus of gallbladder without cholecystitis without obstruction; C79.31 Secondary malignant neoplasm of brain; G93.0 Cerebral cysts; M50.321 Other cervical disc degeneration at C4-C5 level; M50.322 Other cervical disc degeneration at C5-C6 level; M50.323 Other cervical disc degeneration at C6-C7 level; M48.02 Spinal stenosis, cervical region; R93.7 Abnormal findings on diagnostic imaging of other parts of musculoskeletal system
CPT/HCPCS: 70553; 71260; 72156; 74177; A9579; J1642; Q9963; Q9967

== ENCOUNTER 2024-01-03 08:51 | Outpatient (CLI) | payer MEDICARE, MEDICAID | END 2024-01-03 08:52 | disposition home or self-care (01) | LOC: MRI 08:51 | PROVIDERS: ATTEND Radiology Radiation Oncology | DX: C50.919 Malignant neoplasm of unspecified site of unspecified female breast (principal); C79.31 Secondary malignant neoplasm of brain; G93.9 Disorder of brain, unspecified | CPT/HCPCS: 70553 ==

== ENCOUNTER 2024-04-06 14:20 | Inpatient (IN) | payer MEDICARE, MEDICAID ==
[2024-04-06 16:25] LABS: #Basophils 0.04 10x3/uL (0.0-0.2); #Eosinphils Less than 0.03 10x3/uL (0.0-0.7); %Basophils 0.6 % (0.0-1.0); %Eosinophils 0.1 % (0.0-10.0); %Lymphocytes 13.2 % (21.0-51.0); %Monocytes 5.3 % (0.0-10.0); %Neutrophils 80.5 % (42.0-75.0); Hematocrit 34.5 % (36.0-47.0); Hemoglobin 11.5 g/dL (12.0-16.0); Mean Corpuscular HGB CONC 33.3 g/dL (32.0-36.0); Mean Corpuscular Hemoglobin 31.3 pg (27.0-31.0); Mean Corpuscular Volume 93.8 fL (78.0-98.0); Mean Platelet Volume 9.8 fL (7.4-10.4); Platelet Count 184 10x3/uL (130-400); Red Blood Cell (RBC) Count 3.68 mill/uL (4.20-5.40)
[2024-04-06 16:39] LABS: ALT (SGPT) 20 U/L (8-55); AST (SGOT) 48 U/L (5-34); Albumin 3.5 g/dL (3.4-4.8); Alkaline Phosphatase 115 U/L (40-110); Anion Gap 14 mmol/L (10-20); BUN (Urea Nitrogen) 11 mg/dL (9.8-20.1); Bilirubin, Total 1.3 mg/dL (0.2-1.2); Calc. Creatinine Clearance 0 mL/min (70-130); Calcium 9.9 mg/dL (7.8-10.44); Carbon Dioxide 26 mmol/L (23-31); Chloride 104 mmol/L (98-107); Estimated GFR 83; Globulin 3.1 g/dL (2.4-3.5); Glucose 92 mg/dL (83-110); Potassium 3.7 mmol/L (3.5-5.1); Protein, Total 6.6 g/dL (5.8-8.1); Sodium 140 mmol/L (136-145)
[2024-04-06] MEDS ORDERED: Dextrose 5% in Water 1,000 ML IV PRN (16:41)
[2024-04-06] MEDS ORDERED: Dextrose 50% Abboject 50 ML SYRINGE SLOW IVP PRN (16:41)
[2024-04-06] MEDS ORDERED: Glucagon 1 MG/ML KIT IM PRN (16:41)
[2024-04-06 16:45] LABS: Prothrombin Time 13.6 sec (12.0-14.7)
[2024-04-06 16:46] LABS: PTT 27.5 sec (22.9-36.1)
[2024-04-06] MEDS ORDERED: Acetaminophen 325 MG TAB PO PRN (16:48)
[2024-04-06] MEDS ORDERED: Ondansetron ODT 4 MG TAB PO PRN (16:48)
[2024-04-06] MEDS ORDERED: Ondansetron PF 4 MG/2 ML Vial IVP PRN (16:48)
[2024-04-06 22:25] VITALS: BMI 22.2
[2024-04-06] MEDS: traMADol HCl 50 MG TAB PO PRN (23:16)
[2024-04-06] MEDS: TETANUS, DIPHTHERIA TOX,ADULT (TDVAX) 0.5 ML VIAL IM ONE (23:18)
[2024-04-07 04:13] LABS: #Basophils 0.03 10x3/uL (0.0-0.2); %Basophils 0.6 % (0.0-1.0); %Eosinophils 0.8 % (0.0-10.0); %Lymphocytes 25.1 % (21.0-51.0); %Monocytes 8.2 % (0.0-10.0); %Neutrophils 64.9 % (42.0-75.0); Hematocrit 30.2 % (36.0-47.0); Hemoglobin 9.8 g/dL (12.0-16.0); Mean Corpuscular HGB CONC 32.5 g/dL (32.0-36.0); Mean Corpuscular Volume 95.6 fL (78.0-98.0); Mean Platelet Volume 9.8 fL (7.4-10.4); Platelet Count 157 10x3/uL (130-400); RBC Distribution Width 14.1 % (11.5-14.5); Red Blood Cell (RBC) Count 3.16 mill/uL (4.20-5.40)
[2024-04-07 04:33] LABS: Anion Gap 10 mmol/L (10-20); BUN (Urea Nitrogen) 10 mg/dL (9.8-20.1); Calc. Creatinine Clearance 62 mL/min (70-130); Calcium 9.2 mg/dL (7.8-10.44); Carbon Dioxide 26 mmol/L (23-31); Chloride 108 mmol/L (98-107); Estimated GFR 90; Glucose 74 mg/dL (83-110); Potassium 3.3 mmol/L (3.5-5.1); Sodium 141 mmol/L (136-145)
[2024-04-07] MEDS: Pantoprazole 40 MG VIAL IVP SCH (08:41)
[2024-04-07] MEDS: Potassium Chloride 20 MEQ TAB PO SCH (10:38)
[2024-04-08 10:09] VITALS: BP 133/63; TEMP 98.1
== END 2024-04-08 10:08 | disposition home health service (06) | DRG 83 ==
LOC: ERS 14:20 → ERHOLD 16:41 → 2NO 23:10
PROVIDERS: ADMIT Surgery; ATTEND Surgery
DX: S06.6XAA Traumatic subarachnoid hemorrhage with loss of consciousness status unknown, initial encounter (principal); C79.31 Secondary malignant neoplasm of brain; C79.51 Secondary malignant neoplasm of bone; E78.5 Hyperlipidemia, unspecified; R40.2412 Glasgow coma scale score 13-15, at arrival to emergency department; C50.919 Malignant neoplasm of unspecified site of unspecified female breast; Z79.899 Other long term (current) drug therapy; W19.XXXA Unspecified fall, initial encounter
CPT/HCPCS: 12011; 36415; 70450; 72125; 80048; 80053; 85025; 85610; 85730; 93005; G0390; J2470

== ENCOUNTER 2024-04-17 08:47 | Outpatient (CLI) | payer MEDICARE, MEDICAID | END 2024-04-17 08:48 | disposition home or self-care (01) | LOC: CT 08:47 | PROVIDERS: ATTEND Internal Medicine Hematology & Oncology | DX: C79.51 Secondary malignant neoplasm of bone (principal); C50.919 Malignant neoplasm of unspecified site of unspecified female breast; R91.1 Solitary pulmonary nodule; C78.7 Secondary malignant neoplasm of liver and intrahepatic bile duct | CPT/HCPCS: 78306; A9503 ==

== ENCOUNTER 2024-07-17 11:12 | Emergency (ER) | payer MEDICARE, MEDICAID | END 2024-07-17 14:46 | disposition home or self-care (01) | LOC: ERS 11:12 | DX: R21 Rash and other nonspecific skin eruption (principal) | CPT/HCPCS: 99283 ==